=== PATIENT | male | born 1965 | race Two or more races ===

== ENCOUNTER → 2021-06-17 | Outpatient (CLI) | payer SELFPAY ==
[2021-06-17] VITALS (8 sets, daily range): BP systolic 124–146; BP diastolic 80–96
[~2021-06-17] VITALS: Ht 175.3 cm; Wt 79.4 kg
[~2021-06-17] MED LIST: ACETAMINOPHEN 500 MG TAB PO ONE; REGENERON 1200mg/250ml NS 250 ML IV ONE
== END | disposition home or self-care (01) ==
LOC: ER 12:10
PROVIDERS: ATTEND Internal Medicine
DX: U07.1 COVID-19 (principal)
CPT/HCPCS: J7050; M0243; Q0244